=== PATIENT | male | born 1995 | race African-American/Black ===

== ENCOUNTER 2020-08-21 12:55 | Emergency (ER) | payer MEDICAID, OTHER ==
[~2020-08-21] VITALS: Ht 177.8 cm; Wt 63.5 kg
[2020-08-21 12:58] VITALS: BP 104/68
== END 2020-08-21 15:31 | disposition home or self-care (01) ==
LOC: ER 12:55
DX: J02.9 Acute pharyngitis, unspecified (principal); Z20.828 Contact with and (suspected) exposure to other viral communicable diseases
CPT/HCPCS: 36415; 70110; 87426